=== PATIENT | male | born 1995 ===

== ENCOUNTER 2018-07-12 15:34 | Emergency (ER) | payer BC ==
[2018-07-12 15:43] VITALS: BP 134/75; PULSE 86; RESP 16; TEMP 98.9; O2SAT 98
--- NOTE | 2018-07-12 16:01 | ED PDOC ---
Upper Extremity Pain/Injury Time Seen by Provider: 07/12/18 15:45 Chief Complaint (Nursing): Finger,Hand,&Wrist Chief Complaint (Provider): Left Fourth Finger Injury History Per: Patient History/Exam Limitations: no limitations Onset/Duration Of Symptoms: Hrs (approx 1 prior to arrival) Current Symptoms Are (Timing): Still Present Additional Complaint(s): 23 year old male presents to the ED for evaluation of a left fourth digit injury. Patient states he was playing basketball approximately one hour prior to arrival when he presumes the affected finger jammed into the ball. He denies any pain to the finger, but states he is unable to straighten it without manually correcting it. Did not take any medications before coming to ED. No other complaints at present. Denies recent fever, loss of sensation. Right hand dominant PMD: Dr. Waddell Past Medical History Reviewed: Historical Data, Nursing Documentation, Vital Signs Vital Signs: Last Vital Signs Temp 98.9 F 07/12/18 15:43 Pulse 86 07/12/18 15:43 Resp 16 07/12/18 15:43 BP 134/75 07/12/18 15:43 Pulse Ox 98 07/12/18 15:43 - Medical History PMH: No Chronic Diseases - Surgical History Surgical History: No Surg Hx - Family History Family History: States: Unknown Family Hx - Living Arrangements Living Arrangements: With Family - Social History Current smoker - smoking cessation education provided: No Alcohol: None Drugs: Denies - Home Medications Home Medications: Ambulatory Orders Medication Instructions Recorded Ibuprofen [Motrin Tab] 600 mg PO Q6 PRN #20 tab 07/12/18 - Allergies Allergies/Adverse Reactions: Allergies Allergy/AdvReac Type Severity Reaction Status Date / Time No Known Allergies Allergy Verified 07/12/18 15:42 Review of Systems ROS Statement: Except As Marked, All Systems Reviewed And Found Negative Musculoskeletal: Positive for: Other (left fourth finger injury, no pain) Neurological: Negative for: Numbness (or tingling) Physical Exam - Reviewed Nursing Documentation Reviewed: Yes Vital Signs Reviewed: Yes - Physical Exam Comments: GENERAL APPEARANCE: Patient is awake, alert, oriented x 3, in no acute distress. Resting comfortably. SKIN: Warm, dry; (-) cyanosis. NECK: Supple, FROM ENT: Mucus membranes moist. Airway patent, (-) stridor. CHEST AND RESPIRATORY: (-) rales, (-) rhonchi, (-) wheezes; breath sounds equal bilaterally. Respirations even and nonlabored. HEART AND CARDIOVASCULAR: (-) irregularity LEFT HAND: (+) DIP of fourth digit is in flexion, (+) full passive ROM of fourth digit however cannot actively extend at DIP, (-) palpable deformity, (-) erythema / ecchymosis / break in skin integrity / edema / tenderness. Sensation and capillary refill intact. (+) pulses. Remainder of LUE: non-tender with full ROM. NEURO AND PSYCH: Mental status as above. Gait: steady. Speech: clear. (-) facial asymmetry - ECG O2 Sat by Pulse Oximetry: 98 (RA) Pulse Ox Interpretation: Normal Medical Decision Making Medical Decision Making: Initial Impression: mallet finger of left 4th digit Time: 1554 Initial Plan: --Left hand XR 3 views --Patient declined pain medication at this time --Re-evaluation 1615 XR PROCEDURE: Left Hand Radiographs. HISTORY: 4th digit injury COMPARISON: None. TECHNIQUE: 3 views obtained. FINDINGS: BONES: Normal. No fracture. JOINTS: Normal. No osteoarthritic changes. SOFT TISSUES: Normal. OTHER FINDINGS: None. IMPRESSION: Normal left hand radiographs. Finger placed in aluminum finger splint by Nathalie DE PAZ. NV intact after placement. Close follow up with hand stressed to patient and father at bedside. On re-evaluation, patient offers no additional complaints. On exam, patient remains AAOx3, in no acute distress. Vitals stable. Lab/Diagnostic results d/w the patient in great detail. Diagnosis of mallet finger of left fourth digit d/w the patient. Based on history, exam and diagnostic results, plan will be for outpatient follow up with hand/ortho. Patient instructed to follow-up with pmd / referral provided / the clinic in 1- 2 days without fail. Advised to take medication as prescribed. Return to the emergency room at any time for any new or worsening symptoms. Patient states he fully agrees with and understands discharge instructions. States that he agrees with the plan and disposition. Verbalized and repeated discharge instructions and plan. I have given the patient opportunity to ask any additional questions. Scribe Attestation: Documented by Alicia Conklin, acting as a scribe for Yane Zelaya PA-C. Provider Scribe Attestation: All medical record entries made by the Scribe were at my direction and personally dictated by me. I have reviewed the chart and agree that the record accurately reflects my personal performance of the history, physical exam, medical decision making, and the department course for this patient. I have also personally directed, reviewed, and agree with the discharge instructions and disposition. Disposition - Clinical Impression Clinical Impression: Mallet finger of left finger(s) - Patient ED Disposition Is Patient to be Admitted: No Counseled Patient/Family Regarding: Studies Performed, Diagnosis, Need For Followup, Rx Given - Disposition Referrals: Parul Ewing MD [Staff Provider] - Erica Mcguire MD [Medical Doctor] - Disposition: Routine/Home Disposition Time: 16:20 Condition: STABLE Additional Instructions: TWO HAND SPECIALIST REFERRALS PROVIDED. CALL AND MAKE FOLLOW UP APPOINTMENT SOON POSSIBLE. KEEP ALUMINUM FINGER SPLINT IN PLACE UNTIL FOLLOW UP. The emergency medical care you received today was directed at your acute symptoms. If you were prescribed any medication, please fill it and take as directed. It may take several days for your symptoms to resolve. Return to the Emergency Department if your symptoms worsen, do not improve, or if you have any other problems. Please contact your doctor in 2 days for re-evaluation and follow up / or call one of the physicians/clinics you have been referred to that are listed on the Patient Visit Information form that is included in your discharge packet. Bring any paperwork you were given at discharge with you along with any medications you are taking to your follow up visit. Our treatment cannot replace ongoing medical care by a primary care provider (PCP) outside of the emergency department. Prescriptions: Ibuprofen [Motrin Tab] 600 mg PO Q6 PRN #20 tab PRN Reason: Pain, Moderate (4-7) Instructions: Common Finger Injuries (DC) Forms: [employer] (Thai) Print Language: UPPER SORBIAN - POA Present On Arrival: None
--- NOTE | 2018-07-12 16:19 | RAD ---
PROCEDURE: Left Hand Radiographs. HISTORY: 4th digit injury COMPARISON: None. TECHNIQUE: 3 views obtained. FINDINGS: BONES: Normal. No fracture. JOINTS: Normal. No osteoarthritic changes. SOFT TISSUES: Normal. OTHER FINDINGS: None. IMPRESSION: Normal left hand radiographs.
== END 2018-07-12 17:02 | disposition home or self-care (01) ==
LOC: H.ER 15:34
DX: M20.012 Mallet finger of left finger(s) (principal); W21.05XA Struck by basketball, initial encounter; Y93.67 Activity, basketball